=== PATIENT | female | born 1980 | race American Indian/Alaskan Native ===

== ENCOUNTER 2016-08-28 16:00 | Outpatient (CLI) | payer MEDICAID ==
--- NOTE | 2016-08-29 07:49 | Magnetic Resonance Report ---
MR LOWER EXTREMITY JOINT RIGHT WITHOUT CONTRAST History: Right hip pain. Technique: Multisequence, multiplanar MRI with and without fat suppression through the pelvis and right hip. Comparison: None. Findings: The bone marrow signal throughout the visualized pelvis and bilateral hips is within normal limits. There is no evidence for fracture, bone lesion or osteonecrosis. No significant joint pathology is detected. No advanced degenerative changes. The musculotendinous structures surrounding the right hip demonstrate normal signal. There is no evidence for tendinitis, tenosynovitis or rupture. The surrounding musculature is also within normal limits. No significant joint effusion or bursal fluid is detected. MR arthrogram was not performed, but no gross labral abnormality is detected. Impression: Unremarkable MRI of the right hip.
== END 2016-08-28 16:01 | disposition home or self-care (01) ==
LOC: MRI 16:00
PROVIDERS: ATTEND Physical Medicine & Rehabilitation
DX: M25.551 Pain in right hip (principal)
CPT/HCPCS: 73721

== ENCOUNTER 2016-09-24 18:39 | Emergency (ER) | payer MEDICAID ==
[2016-09-24] MEDS ORDERED: MOTRIN PO ONE (22:37)
--- NOTE | 2016-09-24 22:40 | Emergency Department Report ---
HPI - General Chief Complaint: Dental/Oral Time Seen by Provider: 09/24/16 22:36 - HPI HPI: 36-year-old -[place] female with a past medical history of diabetes comes in today for complaint of tooth pain that she's had for 4 days. Patient reports she was seen at [facility] on 09/22/2016 and was prescribed pain medicine and antibiotics. Patient states that the tooth pain remains in not getting any better. She complains of left jaw pain. She appears to have anal clindamycin back in September 04 for the same incident. She has went to the dentist but they would not extracted teeth. ED Past Medical Hx - Past Medical History Previous Medical History?: Yes Hx Diabetes: Yes - Surgical History Past Surgical History?: Yes Hx Cholecystectomy: Yes Hx Appendectomy: Yes Additional Surgical History: csection x 4 - Social History Smoking Status: Never Smoker Substance Use Type: Alcohol, Non Opiate Pain, Prescribed - Medications Home Medications: Home Medications Medication Instructions Recorded Confirmed Last Taken Type Clindamycin [Clindamycin CAP] 300 mg PO Q6H #40 capsule 09/04/15 Unknown Rx Liraglutide [Victoza 2-Humberto] 1.5 mg SQ QDAY #1 pen.injctr 09/04/15 Unknown Rx Loratadine [Claritin] 10 mg PO DAILY #30 tablet 09/04/15 Unknown Rx Promethazine /Codeine 5 ml PO Q6H PRN #150 ml 09/04/15 Unknown Rx [Phenergan/Codeine 6.25-10 mg/5 ml] glyBURIDE [Glyburide] 10 mg PO BID #60 tablet 09/04/15 Unknown Rx Cyclobenzaprine HCl [Flexeril 5 MG 5 mg PO TID PRN #21 tab 12/23/15 Unknown Rx TAB] HYDROcodone/APAP 5-325 [[place] 1 each PO Q6HR PRN #12 tablet 12/23/15 Unknown Rx 5/325] Ibuprofen [Motrin 800 MG tab] 800 mg PO Q8HR PRN #30 tablet 12/23/15 Unknown Rx Ibuprofen [Motrin 800 MG tab] 800 mg PO Q8HR #30 tablet 09/24/16 Unknown Rx ED Review of Systems ROS: Stated complaint: TOOTHACHE Other details as noted in HPI Constitutional: no symptoms reported Physical Exam - Physical Exam Vital Signs: Vital Signs 09/24/16 19:01 Temperature 99.2 F Pulse Rate 91 H Respiratory 20 Rate Blood Pressure 163/96 O2 Sat by Pulse 99 Oximetry Physical Exam: GENERAL: Alert and oriented x3, no apparent distress, Normal Gait, atraumatic. HEAD: Head is normocephalic and a-traumatic. Left jaw swelling and tender to palpate Mouth: Moist mucosa tooth #18 large cavity tender to touch no gingiva enlargement NEUROLOGIC: No focal Deficit, Cranial nerves II through XII are grossly intact. No loss of sensation, No facial droop, PSYCHIATRIC: Mood is congruent with affect, denies suicidal or homicidal ideations. SKIN: Warm and dry, No lesions, No ulceration or induration present ED Course Vital Signs 09/24/16 19:01 Temperature 99.2 F Pulse Rate 91 H Respiratory 20 Rate Blood Pressure 163/96 O2 Sat by Pulse 99 Oximetry ED Medical Decision Making - Medical Decision Making She has been evaluated by this provider in fast track. We will offer patient ibuprofen 800 mg by mouth now. Discussed the patient initially said continue with the clindamycin and a Tylenol 3 we will add ibuprofen 800 to her regimen and is very important for her to follow up with a dentist patient verbalized understanding Critical care attestation.: If time is entered above; I have spent that time in minutes in the direct care of this critically ill patient, excluding procedure time. ED Disposition Clinical Impression: Dental abscess Disposition: DISCHARGED TO HOME OR SELFCARE Is pt being admited?: No Does the pt Need Aspirin: No Condition: Stable Instructions: Dental Abscess (ED) Additional Instructions: Very important for you to follow up with the dentist complete antibiotics as prescribed take pain medication as prescribed Prescriptions: Ibuprofen [Motrin 800 MG tab] 800 mg PO Q8HR #30 tablet Referrals: PRIMARY CARE, [Primary Care Provider] - 3-5 Days Forms: Work/School Release Form(ED)
[2016-09-24 23:12] VITALS: BP 150/88
== END 2016-09-24 23:13 | disposition home or self-care (01) ==
LOC: ED 18:39
DX: K04.7 Periapical abscess without sinus (principal); E11.9 Type 2 diabetes mellitus without complications
CPT/HCPCS: 99282

== ENCOUNTER → 2020-05-20 | Emergency (ER) | payer SELFPAY | LOC: EDBD 08:30 → ED 08:30 | DX: R53.1 Weakness (principal); Z53.21 Procedure and treatment not carried out due to patient leaving prior to being seen by health care provider ==